=== PATIENT | female | born 1955 | race Caucasian/White ===

== ENCOUNTER 2016-09-13 14:07 | Day surgery (SDC) | payer OTHER ==
[~2016-09-13] VITALS: Ht 165.1 cm; Wt 58.2 kg
[~2016-09-13 14:07] MED LIST: NORCO 325 MG-51 TAB PO; OMNICEF 300MG300 MG PO; ZOFRAN 4MG T4 MG/TAB PO
[2016-09-13 14:41] VITALS: BP 140/77; PULSE 84; TEMP 97.5
[2016-09-13 16:16] VITALS: TEMP 97.6
[2016-09-13 16:32] VITALS: BP 126/65; PULSE 55
[2016-09-13] MEDS ORDERED: PYRIDIUM 100MG100 MG PO (16:43)
[2016-09-13] MEDS ORDERED: SENOKOT S 50 MG1 TAB PO (16:44)
[2016-09-13] MEDS ORDERED: NORCO 325 MG-51 TAB PO (16:45)
[2016-09-13 16:47] VITALS: BP 128/73; PULSE 56
[2016-09-13 17:02] VITALS: BP 136/64; PULSE 53
== END 2016-09-13 17:23 | disposition home or self-care (01) ==
LOC: SDCO 14:07
DX: R93.41 Abnormal radiologic findings on diagnostic imaging of renal pelvis, ureter, or bladder (principal); Z80.9 Family history of malignant neoplasm, unspecified; Z87.891 Personal history of nicotine dependence
CPT/HCPCS: C1769; J0690; J1100; J2405; J2704; J3010; J7120; Q9967